=== PATIENT | female | born 1990 | race Caucasian/White ===

== ENCOUNTER 2017-02-01 15:39 | Observation (INO) ==
[2017-02-01] MEDS ORDERED: *HR* FentaNYL (PF) 100 MCG/2 ML VIAL IVP ONE (16:55)
[2017-02-01] MEDS ORDERED: Ondansetron 4 MG/2 ML VIAL IVP ONE (16:55)
[2017-02-01] MEDS ORDERED: 0.9 % Sodium Chloride 1,000 ML IVC ONE (16:55)
[2017-02-01 17:01] LABS: Bilirubin,Urine Negative (Negative); Blood,Urine Large (Negative); Clarity,Urine Turbid (Clear); Color,Urine Red (Yellow); Glucose,Urine (UA) Normal (Normal); Ketones,Urine 15 mg/dL (Negative); Leukocyte Esterase,Urine Moderate (Negative); Nitrite,Urine Positive (Negative); PH,Urine 6.5 pH Units (5.0-8.0); Protein,Urine 100 mg/dL (Neg-Trace); Specific Gravity,Urine 1.027 (1.010-1.025); Urobilinogen,Urine Normal (Normal)
[2017-02-01 17:07] LABS: Bacteria,Urine None Seen per hpf (None-Few); Hyaline Casts,Urine None Seen per lpf (None-Few); Squamous Epithelial Cell,Urine Many per lpf (None-Few); WBC,Urine TNTC per hpf (0-3)
[2017-02-01 17:10] LABS: Basophils % 0.4 %; Eosinophils # 0.1 K/mcL (0.0-0.6); Eosinophils % 1.1 %; Hematocrit 41.3 % (35.3-44.9); Hemoglobin 13.9 g/dL (11.5-15.4); Immature Granulocytes % 0.2 % (0-4); Lymphocytes # 2.3 K/mcL (0.6-4.6); Lymphocytes % 23.5 %; Mean Corpuscular HGB Conc 33.7 g/dL (31.6-35.5); Mean Platelet Volume 10.9 fL (9.4-12.4); Monocytes # 0.7 K/mcL (0.0-1.3); Neutrophils # 6.7 K/mcL (1.6-8.9); Platelet Count 240 K/mcL (140-400); RBC,Urine TNTC per hpf (0-3); Red Blood Count 4.64 M/mcL (3.82-4.97); Red Cell Distribution Width 12.7 % (11.5-14.5); Segmented Neutrophils % 67.8 %
[2017-02-01 17:12] LABS: Alanine Aminotransferase 12 Units/L (0-55); Albumin 4.1 g/dL (3.5-5.0); Albumin/Globulin Ratio 1.1 (1.1-2.2); Alkaline Phosphatase 86 Units/L (38-126); Aspartate Amino Transferase 17 Units/L (5-34); BUN/Creatinine Ratio 17 (6-26); Bilirubin,Total 0.6 mg/dL (0.2-1.2); Blood Urea Nitrogen 14 mg/dL (7-20); Calcium 9.5 mg/dL (8.6-10.8); Carbon Dioxide 23 mEq/L (19-29); Chloride 106 mEq/L (98-109); Globulin 3.7 g/dL (2.4-3.5); Glucose 75 mg/dL (70-99); Osmolality,Calculated 287 (280-300); Potassium 3.7 mEq/L (3.5-4.5); Sodium 139 mEq/L (136-145); Total Protein 7.8 g/dL (6.0-8.3); eGFR For African Americans > 60 (> 60); eGFR For Non-African Americans > 60 (> 60)
[2017-02-01] MEDS ORDERED: Doxycycline 100 MG in 0.9 % Sodium Chloride Mini Bag 100 ML IVPB ONE (19:51)
[2017-02-01] MEDS ORDERED: cefOXitin 2,000 MG in D5% in Water (Mini-Bag+) 100 ML IVPB ONE (20:20)
[2017-02-01] MEDS ORDERED: Acetaminophen 325 MG TABLET PO PRN (23:13)
[2017-02-01] MEDS ORDERED: Ibuprofen 800 MG TABLET PO PRN (23:13)
[2017-02-01] MEDS ORDERED: Naloxone 0.4 MG/ML INJ IVP PRN (23:13)
--- NOTE | 2017-02-01 23:47 | Emergency Department Note ---
Disposition Clinical Impression: PID (acute pelvic inflammatory disease) Disposition: Home, Self-Care Condition: Good General Adult HPI - General Chief complaint: ED Abdominal Pain Stated complaint: ABD PAIN Source: patient Limitations: no limitations Nursing Notes Reviewed: Yes Vital Signs Reviewed: Yes - History of Present Illness HPI Narrative: 26-year-old female who presents with several days of lower quadrant abdominal pain. She is currently on her period. She admits to having Chlamydia in the past but currently is not having vaginal discharge. She has one sexual partner. She admits that her was recently in long-term. She admits she is only sexually active with him at this time. She presents with severe abdominal pain. Vital signs are stable. She has no fever. Pain Scale: 0 - Related Data Home Medications Medication Instructions Recorded Confirmed Plexus 1 each PO DAILY 02/01/17 Allergies Allergy/AdvReac Type Severity Reaction Status Date / Time No Known Allergies Allergy Verified 02/01/17 21:12 All systems ED: reviewed and negative except as stated. Past Medical History - Past Medical History Medical history: Reports: asthma Psychiatric history: Reports: no psych history - Social History Smoking Status: Current every day smoker Smokeless Tobacco Status: No Alcohol use: Reports: none Drug use: Reports: none Physical Exam - General Limitations: no limitations General appearance: alert - Head Head exam: atraumatic - Eye Eye exam: Present: normal appearance - ENT ENT exam: normal exam - Neck Neck exam: Present: normal inspection - Chest Chest inspection: Present: normal inspection - Respiratory Respiratory exam: Present: normal lung sounds bilaterally - Cardiovascular Cardiovascular exam: Present: regular rate, normal rhythm - Abdominal Exam Abdominal exam: Present: soft, tenderness, guarding - Rectal Exam Rectal exam: Present: deferred - Extremities Exam Extremities exam: Present: normal inspection, full ROM - Expanded Lower Extremity Exam Hip/Pelvis exam: Present: normal inspection, full ROM Upper leg exam: Present: normal inspection, full ROM Knee exam: Present: normal inspection, full ROM Lower leg exam: Present: normal inspection, full ROM Ankle exam: Present: normal inspection, full ROM Foot/toe exam: Present: normal inspection, full ROM Neurovascular/Tendon exam: Present: normal capillary refill, pulse deficit Gait: observed and normal - Back Exam Back exam: Present: normal inspection, full ROM - Neurological Exam Neurological exam: Present: alert, oriented X3, CN II-XII intact - Psychiatric Psychiatric exam: Present: normal affect - Skin Skin exam: Present: warm, dry Course Vital Signs Temperature 98.2 F 02/01/17 15:42 Pulse Rate 90 02/01/17 15:42 Respiratory Rate 14 02/01/17 15:42 Blood Pressure 130/82 02/01/17 15:42 O2 Sat by Pulse Oximetry 100 02/01/17 15:42 Temperature 99.2 F 02/01/17 23:15 Pulse Rate 80 02/01/17 23:15 Respiratory Rate 14 02/01/17 23:15 Blood Pressure 120/64 02/01/17 23:15 O2 Sat by Pulse Oximetry 99 02/01/17 23:15 Oxygen Delivery Oxygen Delivery Room Air Medical Decision Making - MDM Narrative Medical decision making narrative: Concern for ovarian torsion versus appendicitis. CT scan of the abdomen shows nonspecific pelvic fluid and they cannot exclude the possibility of ovarian torsion. As such ultrasound was concurrently completed. She was on a urinary tract infection. She was covered for possible TOA with cefoxitin as well as doxycycline and ceftriaxone. Urine was sent for culture. I did complete a pelvic examination which shows acute cervicitis and extreme pain on examination with current menses. She has extreme pain and I would proceed with admission to the RECORD LIBRARIAN service for further evaluation. The patient has clinically pelvic inflammatory disease with possible tubo-ovarian abscess. - Medical Records Medical records reviewed: Yes I reviewed the patient's medical records. - Lab Data Lab results reviewed: Yes I reviewed the patient's lab results. Result diagrams: 02/01/17 16:25 02/01/17 16:25 Lab Results 02/01/17 02/01/17 02/01/17 Range/Units 16:25 16:25 16:25 WBC 9.8 (4.3-11.1) K/mcL RBC 4.64 (3.82-4.97) M/mcL Hgb 13.9 (11.5-15.4) g/dL Hct 41.3 (35.3-44.9) % MCV 89.0 (83.0-100.0) fL MCH 30.0 (28.0-33.3) pg MCHC 33.7 (31.6-35.5) g/dL RDW 12.7 (11.5-14.5) % Plt Count 240 (140-400) K/mcL MPV 10.9 (9.4-12.4) fL Immature Gran % 0.2 (0-4) % Seg Neutrophils % 67.8 % Lymphocytes % 23.5 % Monocytes % 7.0 % Eosinophils % 1.1 % Basophils % 0.4 % Neutrophils # 6.7 (1.6-8.9) K/mcL Lymphocytes # 2.3 (0.6-4.6) K/mcL Monocytes # 0.7 (0.0-1.3) K/mcL Eosinophils # 0.1 (0.0-0.6) K/mcL Basophils # 0.0 (0.0-0.2) K/mcL Sodium (136-145) mEq/L Potassium (3.5-4.5) mEq/L Chloride (98-109) mEq/L Carbon Dioxide (19-29) mEq/L BUN (7-20) mg/dL Creatinine (0.57-1.11) mg/dL Est GFR ( Amer) (> 60) Est GFR (Non-Af Amer) (> 60) BUN/Creatinine Ratio (6-26) Glucose (70-99) mg/dL Calculated Osmolality (280-300) Lactic Acid (0.5-2.2) mmol/L Calcium (8.6-10.8) mg/dL Total Bilirubin (0.2-1.2) mg/dL AST (5-34) Units/L ALT (0-55) Units/L Alkaline Phosphatase (38-126) Units/L Serum Total Protein (6.0-8.3) g/dL Albumin (3.5-5.0) g/dL Globulin (2.4-3.5) g/dL Albumin/Globulin Ratio (1.1-2.2) Lipase (8-78) Units/L Serum , Qual Negative (Negative) Ur Specimen Adequacy See below A Urine Color Red A (Yellow) Urine Clarity Turbid A (Clear) Urine pH 6.5 (5.0-8.0) pH Units Ur Specific [place] 1.027 H (1.010-1.025) Urine Protein 100 H (Neg-Trace) mg/dL Urine Glucose (UA) Normal (Normal) mg/dL Urine Ketones 15 H (Negative) mg/dL Urine Blood Large H (Negative) Urine Nitrite Positive A (Negative) Urine Bilirubin Negative (Negative) Urine Urobilinogen Normal (Normal) mg/dL Ur Leukocyte Esterase Moderate H (Negative) Urine Microscopic RBC TNTC H (0-3) per hpf Urine Microscopic WBC TNTC H (0-3) per hpf Ur Squamous Epith Cells Many H (None-Few) per lpf Urine Bacteria None Seen (None-Few) per hpf Hyaline Casts None Seen (None-Few) per lpf Ur Culture Indicated? YES A (NO) Chlam trachomat DNA PCR (Not Detect) N.gonorrhoeae DNA (PCR) (Not Detect) 02/01/17 02/01/17 02/01/17 Range/Units 16:25 18:12 18:12 WBC (4.3-11.1) K/mcL RBC (3.82-4.97) M/mcL Hgb (11.5-15.4) g/dL Hct (35.3-44.9) % MCV (83.0-100.0) fL MCH (28.0-33.3) pg MCHC (31.6-35.5) g/dL RDW (11.5-14.5) % Plt Count (140-400) K/mcL MPV (9.4-12.4) fL Immature Gran % (0-4) % Seg Neutrophils % % Lymphocytes % % Monocytes % % Eosinophils % % Basophils % % Neutrophils # (1.6-8.9) K/mcL Lymphocytes # (0.6-4.6) K/mcL Monocytes # (0.0-1.3) K/mcL Eosinophils # (0.0-0.6) K/mcL Basophils # (0.0-0.2) K/mcL Sodium 139 (136-145) mEq/L Potassium 3.7 (3.5-4.5) mEq/L Chloride 106 (98-109) mEq/L Carbon Dioxide 23 (19-29) mEq/L BUN 14 (7-20) mg/dL Creatinine 0.81 (0.57-1.11) mg/dL Est GFR ( Amer) > 60 (> 60) Est GFR (Non-Af Amer) > 60 (> 60) BUN/Creatinine Ratio 17 (6-26) Glucose 75 (70-99) mg/dL Calculated Osmolality 287 (280-300) Lactic Acid 0.5 (0.5-2.2) mmol/L Calcium 9.5 (8.6-10.8) mg/dL Total Bilirubin 0.6 (0.2-1.2) mg/dL AST 17 (5-34) Units/L ALT 12 (0-55) Units/L Alkaline Phosphatase 86 (38-126) Units/L Serum Total Protein 7.8 (6.0-8.3) g/dL Albumin 4.1 (3.5-5.0) g/dL Globulin 3.7 H (2.4-3.5) g/dL Albumin/Globulin Ratio 1.1 (1.1-2.2) Lipase 16 (8-78) Units/L Serum , Qual (Negative) Ur Specimen Adequacy Urine Color (Yellow) Urine Clarity (Clear) Urine pH (5.0-8.0) pH Units Ur Specific [place] (1.010-1.025) Urine Protein (Neg-Trace) mg/dL Urine Glucose (UA) (Normal) mg/dL Urine Ketones (Negative) mg/dL Urine Blood (Negative) Urine Nitrite (Negative) Urine Bilirubin (Negative) Urine Urobilinogen (Normal) mg/dL Ur Leukocyte Esterase (Negative) Urine Microscopic RBC (0-3) per hpf Urine Microscopic WBC (0-3) per hpf Ur Squamous Epith Cells (None-Few) per lpf Urine Bacteria (None-Few) per hpf Hyaline Casts (None-Few) per lpf Ur Culture Indicated? (NO) Chlam trachomat DNA PCR (Not Detect) N.gonorrhoeae DNA (PCR) (Not Detect) 02/01/17 Range/Units 21:02 WBC (4.3-11.1) K/mcL RBC (3.82-4.97) M/mcL Hgb (11.5-15.4) g/dL Hct (35.3-44.9) % MCV (83.0-100.0) fL MCH (28.0-33.3) pg MCHC (31.6-35.5) g/dL RDW (11.5-14.5) % Plt Count (140-400) K/mcL MPV (9.4-12.4) fL Immature Gran % (0-4) % Seg Neutrophils % % Lymphocytes % % Monocytes % % Eosinophils % % Basophils % % Neutrophils # (1.6-8.9) K/mcL Lymphocytes # (0.6-4.6) K/mcL Monocytes # (0.0-1.3) K/mcL Eosinophils # (0.0-0.6) K/mcL Basophils # (0.0-0.2) K/mcL Sodium (136-145) mEq/L Potassium (3.5-4.5) mEq/L Chloride (98-109) mEq/L Carbon Dioxide (19-29) mEq/L BUN (7-20) mg/dL Creatinine (0.57-1.11) mg/dL Est GFR ( Amer) (> 60) Est GFR (Non-Af Amer) (> 60) BUN/Creatinine Ratio (6-26) Glucose (70-99) mg/dL Calculated Osmolality (280-300) Lactic Acid (0.5-2.2) mmol/L Calcium (8.6-10.8) mg/dL Total Bilirubin (0.2-1.2) mg/dL AST (5-34) Units/L ALT (0-55) Units/L Alkaline Phosphatase (38-126) Units/L Serum Total Protein (6.0-8.3) g/dL Albumin (3.5-5.0) g/dL Globulin (2.4-3.5) g/dL Albumin/Globulin Ratio (1.1-2.2) Lipase (8-78) Units/L Serum , Qual (Negative) Ur Specimen Adequacy Urine Color (Yellow) Urine Clarity (Clear) Urine pH (5.0-8.0) pH Units Ur Specific [place] (1.010-1.025) Urine Protein (Neg-Trace) mg/dL Urine Glucose (UA) (Normal) mg/dL Urine Ketones (Negative) mg/dL Urine Blood (Negative) Urine Nitrite (Negative) Urine Bilirubin (Negative) Urine Urobilinogen (Normal) mg/dL Ur Leukocyte Esterase (Negative) Urine Microscopic RBC (0-3) per hpf Urine Microscopic WBC (0-3) per hpf Ur Squamous Epith Cells (None-Few) per lpf Urine Bacteria (None-Few) per hpf Hyaline Casts (None-Few) per lpf Ur Culture Indicated? (NO) Chlam trachomat DNA PCR NOT DETECTED (Not Detect) N.gonorrhoeae DNA (PCR) NOT DETECTED (Not Detect) - Radiology Data Radiology results reviewed: Yes I reviewed the patient's radiology results.
--- NOTE | 2017-02-01 23:50 | OB/GYN History & Physical ---
Date of Encounter: 02/02/17 Time of Encounter: 23:43 Assessment and Plan (1) PID (acute pelvic inflammatory disease) Current visit: Yes Status: Acute Admission to PATIENT SERVICE COORDINATOR service Cefoxitin 2 g every 6 hours Doxycycline 100 mg by mouth every 12 Regular diet Up ad tee. CBC in a.m. Anticipate discharge tomorrow after 24 hours of IV antibiotics if stable History of Present Illness HPI: Ms. Roe is a 26 year old female G0 presents to the ED with complaints of severe abdominal pain. Patient states abdominal pain has been increasing over the last 6 months has noticed marked increase in genaral abdominal and menstrual pain with occasional pain with intercourse. Patient also having bleeding associated with intercourse. Pt states she has been trying to concieve the last year without succcess. LMP 01/31/17. Patient states last night began to feel feverish and then this morning abdominal pain was increased, patient went to work and pain continued to increase further, presented to ED for pelvic pain workup, ED findings show a ultrasound consistent with PID. Patient states she has been in a presumed monogamous relationship since 2014, patient does have a history of chlamydia in 2013 from ex- she says she was treated and also had a negative test of cure. Patient is unsure source of current infection, but was in intermediate within last 2 years. Past Med Surg Social Fam HX - Past Medical History Medical history: asthma Psychiatric history: no psych history - Social History Smoking Status: Current every day smoker Smokeless Tobacco Status: No Alcohol use: none Drug use: none Obstetrical History - Pregnancies : 0 Medications and Allergies No Known Home Drugs 02/01/17 [History] Allergies No Known Allergies Allergy (Verified 02/01/17 23:54) Review of System OB - Genitourinary Genitourinary: difficulty conceiving, dysmenorrhea, dyspareunia, pelvic pain, vaginal discharge, no difficulty urinating, no difficulty voiding, no genital lesions, no genital pruritis, no hematuria, no urinary frequency, no urinary urgency, no vaginal dryness, no vaginal odor, no vaginal pruritis - Menstruation Menstruation: as per HPI, currently menstrual Exam - Vital Signs Vital signs: Initial Vital Signs Temp Pulse Resp BP Pulse Ox 98.2 F 90 14 130/82 100 02/01/17 15:42 02/01/17 15:42 02/01/17 15:42 02/01/17 15:42 02/01/17 15:42 - Constitutional Constitutional: well developed, well nourished, no acute distress - HEENT HEENT: Mucus Membranes Moist - Neck Neck exam: full ROM - Lungs Respiratory exam: CTAB - Cardiovascular Cardiovascular exam: RRR, +S1, +S2 - Breasts Breast: bilateral: normal - Abdomen Abdomen: Present: bowel sounds normal, diffuse tenderness Abdomen detail: right lower quadrant: tenderness, left lower quadrant: tenderness - Extremities Extremities exam: normal capillary refill, normal inspection Results Result Diagrams: 02/01/17 16:25 02/01/17 16:25 Abnormal lab results Globulin 3.7 g/dL (2.4-3.5) H 02/01/17 16:25 Ur Specimen Adequacy See below A 02/01/17 16:25 Urine Color Red (Yellow) A 02/01/17 16:25 Urine Clarity Turbid (Clear) A 02/01/17 16:25 Ur Specific [place] 1.027 (1.010-1.025) H 02/01/17 16:25 Urine Protein 100 mg/dL (Neg-Trace) H 02/01/17 16:25 Urine Ketones 15 mg/dL (Negative) H 02/01/17 16:25 Urine Blood Large (Negative) H 02/01/17 16:25 Urine Nitrite Positive (Negative) A 02/01/17 16:25 Ur Leukocyte Esterase Moderate (Negative) H 02/01/17 16:25 Urine Microscopic RBC TNTC per hpf (0-3) H 02/01/17 16:25 Urine Microscopic WBC TNTC per hpf (0-3) H 02/01/17 16:25 Ur Squamous Epith Cells Many per lpf (None-Few) H 02/01/17 16:25 Ur Culture Indicated? YES (NO) A 02/01/17 16:25 All other labs normal. - VTE Reasons for not Prescribing Prophylaxis: Treatment not Indicated - Low risk for VTE
[2017-02-02] MEDS: cefOXitin 2,000 MG in D5% in Water (Mini-Bag+) 100 ML IVPB SCH ×2 (00:22→06:44)
[2017-02-02 06:02] LABS: Basophils % 0.3 %; Eosinophils # 0.2 K/mcL (0.0-0.6); Eosinophils % 2.3 %; Hematocrit 36.9 % (35.3-44.9); Immature Granulocytes % 0.3 % (0-4); Lymphocytes # 1.6 K/mcL (0.6-4.6); Lymphocytes % 23.7 %; Mean Corpuscular HGB Conc 32.5 g/dL (31.6-35.5); Mean Corpuscular Hemoglobin 29.3 pg (28.0-33.3); Mean Corpuscular Volume 90.2 fL (83.0-100.0); Monocytes # 0.6 K/mcL (0.0-1.3); Monocytes % 8.1 %; Neutrophils # 4.5 K/mcL (1.6-8.9); Platelet Count 195 K/mcL (140-400); Red Blood Count 4.09 M/mcL (3.82-4.97); Red Cell Distribution Width 12.8 % (11.5-14.5); Segmented Neutrophils % 65.3 %
[2017-02-02] MEDS ORDERED: Doxycycline 100 MG CAPSULE PO SCH (09:00)
--- NOTE | 2017-02-02 09:15 | Discharge Summary ---
Date of Encounter: 02/02/17 Time of Encounter: 09:16 - Discharge Diagnosis (1) PID (acute pelvic inflammatory disease) Priority: Primary Status: Acute Comments: Pt afebrile with normal WBC. Pain much improved. Will d/c home on PO Doxycycline. - Discharge Medications Prescriptions: Doxycycline 100 mg PO Q12H #20 capsule Home Medications: Doxycycline 100 mg PO Q12H #20 capsule 02/02/17 [Rx] Allergies/Adverse Reactions: Allergies No Known Allergies Allergy (Verified 02/01/17 23:54) Data Procedures and tests throughout hospitalization: Laboratory Tests 02/02/17 05:51 WBC 6.9 RBC 4.09 Hgb 12.0 D Hct 36.9 MCV 90.2 MCH 29.3 MCHC 32.5 RDW 12.8 Plt Count 195 MPV 10.0 Immature Gran % 0.3 Seg Neutrophils % 65.3 Lymphocytes % 23.7 Monocytes % 8.1 Eosinophils % 2.3 Basophils % 0.3 Neutrophils # 4.5 Lymphocytes # 1.6 Monocytes # 0.6 Eosinophils # 0.2 Basophils # 0.0 Labs on day of discharge: Labs from last 24 hours 02/02/17 05:51 WBC 6.9 RBC 4.09 Hgb 12.0 D Hct 36.9 MCV 90.2 MCH 29.3 MCHC 32.5 RDW 12.8 Plt Count 195 MPV 10.0 Immature Gran % 0.3 Seg Neutrophils % 65.3 Lymphocytes % 23.7 Monocytes % 8.1 Eosinophils % 2.3 Basophils % 0.3 Neutrophils # 4.5 Lymphocytes # 1.6 Monocytes # 0.6 Eosinophils # 0.2 Basophils # 0.0 - Impressions Pt is doing well and has only taken one Motrin. No fever or chills and pain much improved. Date of admission: 02/01/17 22:05 Primary care physician: Angeline Sage MD - Patient Status Disposition: Home, Self-Care Condition: Good Functional capacity at discharge: independent ambulation - Discharge Instructions Follow Up With: Ady Dorado MD [Partnered Physician] - Forms: ED Satisfaction Letter, Work/School Release Additional Instructions: Pt to f/u with me in 2 weeks and to call for worsening of sx's of pain, discharge or fever Hospital Course BUILDING ENGINEER Time Attestation: Total time spent providing and/or coordinating discharge services: Exam - Constitutional Vitals: Temp Pulse Resp BP Pulse Ox 99.2 F 80 14 120/64 99 02/01/17 23:15 02/01/17 23:15 02/01/17 23:15 02/01/17 23:15 02/01/17 23:15 General appearance IM: A&O X 3 - Respiratory Respiratory exam: Present: CTAB - Cardiovascular Cardiovascular exam IM: Present: RRR - GI/Abdominal GI/Abdominal exam IM: normal bowel sounds - Neurological Exam Neurological exam: oriented X3 - Other Additional findings: No significant abdominal pain at this time - VTE Reasons for not Prescribing Prophylaxis: Treatment not Indicated - Low risk for VTE
[2017-02-02 09:59] VITALS: BP 115/67
== END 2017-02-02 11:15 | disposition home or self-care (01) ==
LOC: EMEROO 15:39 → 1NENUOBS 15:39 → 1NENUPED 23:24
PROVIDERS: ADMIT Obstetrics & Gynecology; ATTEND Obstetrics & Gynecology